=== PATIENT | male | born 1970 | race Hispanic/Latino ===

== ENCOUNTER 2018-07-26 08:51 | Emergency (ER) | payer SELFPAY ==
[2018-07-26] MEDS ORDERED: Indomethacin 25 mg Capsule ONE (09:18)
== END 2018-07-26 09:29 | disposition home or self-care (01) ==
LOC: NAV ERS 08:51
DX: M10.9 Gout, unspecified (principal); Z87.891 Personal history of nicotine dependence; Z79.899 Other long term (current) drug therapy
CPT/HCPCS: 99283